=== PATIENT | female | born 1935 | race Caucasian/White ===

== ENCOUNTER 2023-11-09 11:11 | Observation (INO) ==
--- NOTE | 2023-11-03 10:20 | PAT Medication Instructions ---
Medication Instructions Date of Service November 03, 2023 Home Medications amlodipine 10 mg tablet 10 mg PO QAM calcium carbonate 600 mg-vitamin D3 20 mcg (800 unit) tablet (Caltrate with Vitamin D3) 1 tab PO BID denosumab 60 mg/mL subcutaneous syringe (Prolia) 60 mg subcut UD ezetimibe 10 mg tablet 10 mg PO QAM hydrochlorothiazide 12.5 mg tablet 12.5 mg PO QAM levothyroxine 100 mcg tablet (Synthroid) 100 mcg PO QAM lisinopril 40 mg tablet 40 mg PO QAM metoprolol succinate 25 mg tablet,extended release 24 hr 12.5 mg PO PM Centrum Silver 1 tab PO QAM omega 9-sfb-wue-fish oil 300 mg-1,000 mg capsule (Fish Oil) 1 cap PO QAM cholecalciferol (vitamin D3) 25 mcg (1,000 unit) chewable tablet (Vitamin D3) 25 mcg PO QAM ibuprofen 200 mg tablet (Advil) 200 mg PO Q6H PRN Pain latanoprost 0.005 % eye drops 1 drp ophthalmic (eye) PM vitamin A-vitamin C-vit E-min tablet 1 tab PO DAILY Continue as directed denosumab 60 mg/mL subcutaneous syringe (Prolia) 60 mg subcut UD ASK your surgeon for instructions ibuprofen 200 mg tablet (Advil) 200 mg PO Q6H PRN Pain ASK your prescriber and surgeon ibuprofen 200 mg tablet (Advil) 200 mg PO Q6H PRN Pain STOP taking 2 weeks before surgery (or as soon as possible if surgery is within 2 weeks) omega 7-lpt-zcc-fish oil 300 mg-1,000 mg capsule (Fish Oil) 1 cap PO QAM vitamin A-vitamin C-vit E-min tablet 1 tab PO DAILY DO NOT take the morning of surgery calcium carbonate 600 mg-vitamin D3 20 mcg (800 unit) tablet (Caltrate with Vitamin D3) 1 tab PO BID hydrochlorothiazide 12.5 mg tablet 12.5 mg PO QAM lisinopril 40 mg tablet 40 mg PO QAM Centrum Silver 1 tab PO QAM cholecalciferol (vitamin D3) 25 mcg (1,000 unit) chewable tablet (Vitamin D3) 25 mcg PO QAM Take morning of surgery With a small sip of water, OTHERWISE NOTHING TO EAT OR DRINK AFTER MIDNIGHT: amlodipine 10 mg tablet 10 mg PO QAM ezetimibe 10 mg tablet 10 mg PO QAM levothyroxine 100 mcg tablet (Synthroid) 100 mcg PO QAM Take evening before surgery calcium carbonate 600 mg-vitamin D3 20 mcg (800 unit) tablet (Caltrate with Vitamin D3) 1 tab PO BID metoprolol succinate 25 mg tablet,extended release 24 hr 12.5 mg PO PM latanoprost 0.005 % eye drops 1 drp ophthalmic (eye) PM Other Notes If you have any questions please call us at [phone] or [phone] or [phone] or [phone]
--- NOTE | 2023-11-03 14:20 | Anesthesiology Consultation ---
Date of Service November 03, 2023 Assessment & Plan (1) Encounter for pre-operative examination: Chart Review Chart Review: Pending: Refer to Additional Notes / Consult section (pending review of previous ECHO ) and Patient seen in Pre Admission Testing - ECHO from 2019 received- discussed with Dr. Samayoa- due to age and last ECHO being 2019- recommends updated ECHO prior to surgery/SAB. Please send optimization note to PCP to schedule ECHO at earliest convenience to [phone] - Awaiting review of ECHO prior to fluid orders being done - Patient is NOT an OPJ candidate Per PAT appt on 11/03/23, no recent illness/disease exposures, illness related symptoms, or recent illness/disease positive tests. Will leave to surgeon's discretion if preop Covid testing needed Teaching & Discussion Pre-Anesthesia Teaching/Discussion Notes: Instructed NPO after midnight before surgery,except medications with 15 cc of water. Medication instructions provided according to the PAT guidelines. History Surgery Operation Date: 11/09/23 10:40 Proposed Procedures p Left Total Hip Arthroplasty - Wally Moon MD Height/Weight Height: 5 ft 4 in Weight: 77.8 kg Allergies Allergy/AdvReac Type Severity Reaction Status Date / Time No Known Allergies Allergy Verified 11/03/23 09:03 Medications Home Medications Medication Instructions Recorded Confirmed Last Taken amlodipine 10 mg tablet 10 mg PO QAM 11/02/23 11/03/23 Unknown calcium carbonate 600 mg-vitamin 1 tab PO BID 11/02/23 11/03/23 Unknown D3 20 mcg (800 unit) tablet (Caltrate with Vitamin D3) denosumab 60 mg/mL subcutaneous 60 mg subcut UD 11/02/23 11/03/23 Unknown syringe (Prolia) ezetimibe 10 mg tablet 10 mg PO QAM 11/02/23 11/03/23 Unknown hydrochlorothiazide 12.5 mg tablet 12.5 mg PO QAM 11/02/23 11/03/23 Unknown levothyroxine 100 mcg tablet 100 mcg PO QAM 11/02/23 11/03/23 Unknown (Synthroid) lisinopril 40 mg tablet 40 mg PO QAM 11/02/23 11/03/23 Unknown metoprolol succinate 25 mg 12.5 mg PO PM 11/02/23 11/03/23 Unknown tablet,extended release 24 hr gvxpbtlq-bui-njtmd acid 0.4 1 tab PO QAM 11/02/23 11/03/23 Unknown mg-lycopene 300 mcg-lutein 250 mcg tablet (Centrum Silver) omega 3-kiz-sgc-fish oil 300 1 cap PO QAM 11/02/23 11/03/23 Unknown mg-1,000 mg capsule (Fish Oil) cholecalciferol (vitamin D3) 25 25 mcg PO QAM 11/03/23 11/03/23 Unknown mcg (1,000 unit) chewable tablet (Vitamin D3) ibuprofen 200 mg tablet (Advil) 200 mg PO Q6H PRN Pain 11/03/23 11/03/23 Unknown latanoprost 0.005 % eye drops 1 drp ophthalmic (eye) PM 11/03/23 11/03/23 Unknown vitamin A-vitamin C-vit E-min 1 tab PO DAILY 11/03/23 11/03/23 Unknown tablet Past Medical History Medical History (Updated 11/06/23 @ 11:37 by Kavitha Gasca PA-C) Arthritis of left hip Cardiac murmur Intermittent/chronic Believes last ECHO was 2019 Glaucoma Follows with eye doctor routinely History of COVID- fall 2022- no current symptoms Hyperlipidemia Hypertension Hypothyroidism Impaired fasting glucose Hgb A1C 6.0 on 11/03/23 Exercise / Class Metabolic Activity III < 4 Walking/Shop/Light housework (no chest pain or SOB with flat surface ambulation- uses cane/walker PRN ) Past Surgical History Surgical History History of cataract surgery bilat History of colonoscopy History of femur fracture right with hardware History of hysterectomy History of tooth extraction Past Anesthesia History No Hx of Anesthesia Complications and No Family Hx of Anesthesia Complications History of PONV No Hx of PONV and No Hx of Motion Sickness Social History Smoking Status: Former smoker Do You Dip or Chew Tobacco: No Smoking End Date: 60 yrs ago Hx Alcohol Use: Yes Alcohol type: wine alcohol intake frequency: holidays/special occasions only Hx Substance Use: No substance use type: does not use Review of Systems Patient denies chest pain, shortness of breath, dyspnea on exertion, reflux, cough, wheezing, palpitations. No hx of seizures, stroke, NM, apnea/snoring. No hx of blood clots or blood transfusions Physical Exam Vital Signs VITALS BP 111/60 P 71 TEMP 97.7 SP02 95% RESP 16 Constitutional no acute distress ENMT Mouth: no TMJ clicking Thyromental Distance: > or= 3.5 Finger Breadths (3.5) Mallampati Class: I Full dentures on top and bottom Neck + limited neck extension (mild) Respiratory normal respiratory effort; no respiratory distress Auscultation: lungs clear to auscultation bilaterally; no wheezes Cardiovascular Rate/Rhythm: regular rate and regular rhythm Heart Sounds: + murmur (II/ murmur ) Vessels: no carotid bruit Musculoskeletal Spine: no pain with cervical ROM Extremities: extremities normal to inspection Psychiatric Orientation: alert Lab Results Anesthesia Preop Results Results Anesthesia Widget: WBC 8.20 K/ul (4.8-10.8) 11/03/23 Hgb 12.7 g/dl (12.0-16.0) 11/03/23 Hct 37.6 % (37.0-47.0) 11/03/23 Plt 343 K/uL (130-400) 11/03/23 Na 136 mmol/L (136-145) 11/03/23 K 4.4 mmol/L (3.5-5.1) 11/03/23 Cl 101 mmol/L (98-107) 11/03/23 CO2 30 mmol/L (21-32) 11/03/23 BUN 24 mg/dl (6-23) H 11/03/23 Creat 0.86 mg/dl (0.6-1.2) 11/03/23 Glucose Level 130 mg/dl (70-99(Fasting)) H 11/03/23 PT 11.2 Seconds (9.0-12.0) 11/03/23 PTT 25 Seconds (21-31) 11/03/23 INR 1.0 (0.9-1.1) 11/03/23 HA1c 6.0 % (4.5-5.6) H 11/03/23 Blood Type A Positive 11/03/23 Antibody Screen NEGATIVE 11/03/23 Testing Electrocardiogram Date: 11/03/23 SR with 1st degree AVB at 68bpm RBBB Chest X-Ray Date: 11/03/23 FINDINGS: PA and lateral chest radiographs are obtained. No prior studies are available for comparison at the time of dictation. There is a moderate to large hiatal hernia. The heart is enlarged noting atherosclerotic calcification of the thoracic aorta. The pulmonary vasculature is noncongested. Nonspecific interstitial thickening is likely chronic. There is bibasilar scarring/atelectasis. The lungs and pleural spaces are otherwise clear. There is no pneumothorax. The skeletal structures are osteopenic. The bony thorax appears intact. Degenerative change is noted in the shoulders and spine. IMPRESSION: 1. Cardiomegaly with no active disease in the chest. 2. Moderate to large hiatal hernia. Echocardiogram Date: 05/20/20 EF: 65% LV Function: normal RWMA: + none Other Findings: no LVH LA mildly dilated RV is normal in size and function Mild MR. 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 Patient did not reach target heart rate but exercise tolerance was reduced. 6.2 METS achieved. MPHR 93%. No ischemic EKG changes, arrhythmias or ectopy at the level of exercise achieved. There were rare isolated PVCs in recovery phase.
[~2023-11-09 11:11] MED LIST: BUPIVACAINE 0.5 % 5 MG/1 ML PF 10ML VIAL ONE
[2023-11-09] MEDS: LR 500ML BOLUS, THEN 15ML/HR IV SCH (11:37)
[2023-11-09] MEDS: LR 60ML/HR IV SCH (11:38)
[2023-11-09] MEDS ORDERED: MIDAZOLAM HCL 1 MG/ML 2ML VIAL ONE (11:51)
[2023-11-09] MEDS ORDERED: PROPOFOL IV EMULSION 10 MG/ML 20 ML VIAL IV ONE (11:51)
--- NOTE | 2023-11-09 12:46 | History & Physical Bridge Note ---
Date of Service November 09, 2023 History & Physical Bridge Note I have examined the patient, reviewed the History & Physical and in the interval since the performance of the History & Physical I have noted the following changes of clinical significance: no changes noted
--- NOTE | 2023-11-09 13:00 | Magnetic Resonance Report ---
MRI OF THE LEFT FEMUR WITHOUT CONTRAST CLINICAL HISTORY: Left leg pain. Evaluate for atypical femoral fracture. COMPARISON STUDY: Left hip radiographs November 02, 2023. TECHNIQUE: Utilizing a 1.5 Merry magnet and dedicated coil, multiplanar, multiecho imaging of the lef t femur was performed without intravenous contrast. FINDINGS: This exam is mildly compromised due to motion artifact. However, there is no marrow edema w ithin the left femoral diaphysis at site of cortical thickening on radiographs of November 02, 2023 t o suggest an atypical femoral fracture. Severe left hip joint space narrowing is noted with associate d is no marrow edema within the left femoral head and neck. This is likely related to osteoarthritis although suboptimally visualized on this examination. No left thigh fluid collection is present. A ma rker was placed on the skin at site of maximal pain, overlying the anterior left thigh. No correspond ing abnormality is present. There is a small left hip joint effusion, likely related to osteoarthriti s. IMPRESSION: 1. No marrow edema within the left femoral diaphysis at site of cortical thickening on radiographs of November 02, 2023 to suggest atypical femoral fracture. 2. Severe left hip osteoarthritis with associated marrow edema within the left femoral head and neck, suboptimally visualized on this exam. ACT 112: Negative or not required by law. Electronically signed by: Yair Sheth M.D. 11/09/2023 12:59 PM
[2023-11-09] MEDS ORDERED: ePHEDrine sulfate 50 MG/ML AMP IV PRN (13:07)
[2023-11-09] MEDS ORDERED: ONDANSETRON INJ 2 MG/ML 2 ML VIAL IV PRN ×2 (13:07→16:23)
[2023-11-09] MEDS ORDERED: ATROPINE SULFATE 0.1 MG/ML 10ML SYR IV PRN (13:07)
[2023-11-09] MEDS: FAMOTIDINE 20 MG TAB PO SCH (13:10)
[2023-11-09] MEDS: dexAMETHasone 4 MG TAB PO SCH (13:10)
[2023-11-09] MEDS: ACETAMINOPHEN 500 MG TAB PO SCH ×2 (13:10→21:02)
[2023-11-09] MEDS: CeleBREX 200 MG CAP PO SCH (13:11)
[2023-11-09] MEDS: METOCLOPRAMIDE HCL 10 MG TABLET PO SCH (13:11)
[2023-11-09] MEDS: TRANEXAMIC ACID 1,000 MG **IV Pre-op IV SCH (13:27)
[2023-11-09] MEDS: ceFAZolin 2000MG 2,000 MG/15 ML SYR IV SCH (13:40)
[2023-11-09] MEDS: BUPIVACAINE/EPINEPHRINE 0.5% MPF 1:200,000 30 ML VIAL ONE (14:17)
--- NOTE | 2023-11-09 15:29 | Operative Report ---
PG Post Operative Report Pre & Post Diagnosis Operation Date: 11/09/23 12:30 Pre-Op Diagnosis: Left Hip Advanced Degenerative Joint Disease Post-Op Diagnosis: Left Hip Advanced Degenerative Joint Disease I identified the patient and participated in the time-out.: Yes Procedure Operation Date: 11/09/23 12:30 Actual Procedures p Left Total Hip Arthroplasty, Cemented(Left) - Wally Moon MD Surgeon Wally Moon MD Care Management Assistant Johnathon Corona PA-C Estimated Blood Loss 100 Findings Consistent with Post-Op Diagnosis Operative findings were advanced left hip DJD. 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 She had a protrusion of the acetabulum and the femoral head medially. Significant osteophytes around the femoral head and acetabulum. Specimens Left femoral head sent for pathology. Anesthesia Type Spinal MAC Complications none Disposition Accompanied Patient To Recovery: No Indications Patient is an 88-year-old female is had a long history of left hip pain discomfort is gotten markedly worse over the past several months. She has had to resort to using a cane to get around. X-rays showed advanced hip arthritis. Patient also has a history of atypical femur fracture and osteoporosis. She was having there is severe pain so we did get an MRI of her femur to make sure she did not have a stress fracture. There was no signs of a stress fracture. The patient indicated for surgical treatment for hip arthritis. Description of Procedure Operative implants consist of: 1 Biomet G7 size 52 mm acetabular shell. 2. 6.5 cancellous acetabular screws 1 of 35 mm length and 1 of 25 mm length. 3. [place] hole spring encaser. 4. Highly cross-linked polyethylene liner with a 52 mm outer diameter and 36 mm diameter. 5. DePuy Homer size 2 standard femoral stem. 6. +5/36 mm ceramic articular ball. The patient was taken the operating, identified, placed on the operating table in supine position but all contractors were properly padded. IV antibiotics provided by anesthesia team. Spinal anesthetic and been implemented holding area. [place] catheter was placed in sterile fashion. The patient was then placed in the right lateral decubitus position. Next a roll was placed. Stulberg hip positioner was used for positioning. The left hip and leg were then prepped and draped in usual sterile fashion. A posterolateral approach the left hip was then performed to a curvilinear incision centered over the greater trochanter. Sharp dissection carried through subcutaneous tissue down to the gluteal fascia. The gluteal fascia was incised longitudinally in line with skin incision. The underlying greater bursa was excised. The piriformis and external rotators along with the posterior hip joint capsule was then released from the hip as a single layer. Great care was taken throughout the procedure to protect the sciatic nerve at all times. I then did did a in situ cut of the femoral neck due to the protrusio hip and inability dislocated without the risk of fracture. I then internally rotated the leg. Then made a femoral neck osteotomy cut about a centimeter above the lesser trochanter. The remaining femoral neck was removed. The femur was retracted anteriorly. The femoral head was removed. The acetabulum was exposed. Attention then turned toward preparation. Preparation of the acetabular was then performed beginning with reaming with a 43 and progressing up to a 51. I did very carefully reamed this due to the protrusio appearance and architecture. I then reamed a bit with a 52 reamer and placed a 52 mm acetabular cup in about 40 degrees lateral opening and 20 degrees of anteversion. It was fixed with two 6.5 cancellous screws. A trial liner was placed. Attention drawn the femur. The proximal femur was entered with a cookie cutter followed by canal finder and lateralizing reamer. I then broached beginning the size of 1 and progressing up to a 2. Got pretty good fitted to. I trialed the hip and the +5 articular ball provide full stability, appropriate leg lengths and appropriate soft tissue tension. The hip was fully stable in full extension and external rotation and flexion to 90 degrees internal rotation over [address] I elected to place these implants. All trial implants were removed. [place] hole spring encaser was placed. Highly cross- linked polyethylene liner was placed. A cement restrictor was placed on the canal. I placed this an extra distance down the canal as I was concerned about her developing a stress fracture distal end of the stem. I then mixed a double batch [place] G cement. This was injected in the canal. A size 2 standard Homer femoral stem was then placed. Once the cement hardened a +5/36 mm ceramic articular ball was placed. Hip was located and once again found to be stable. Attention drawn toward closing. Wound was irrigated coconuts pulsatile lavage solution. I did inject locally with 60 cc of half percent Marcaine with epinephrine. The posterior capsule and external rotators then repaired through drills in the posterior trochanter with #2 Tycron suture. The IT band gluteal fascia was then closed with #1 PDS suture in running fashion for subcutaneous tissues then closed in 2 layers with a deep layer #2 Vicryl suture in the subcutaneous tissues with 2 Dexon suture in a buried interrupted fashion. The skin was closed with skin milad. The leg was then cleaned and dried. A Prevena VAC dressing was applied due to the very thick soft tissue envelope. The patient was then transferred to the recovery room in stable condition. Patient tolerated procedure well there are no complications. Johnathon Corona, my physician assistant director of public works, was present for the entire procedure. His assistance was essential and required for appropriate patient positioning, prepping and draping, surgical exposure, performing the technical details of the operation, placement the implants, closure of the wound, and placement of the sterile bandage. I attest to the content of the Intraoperative Record and any orders documented therein. Any exceptions are noted below.
--- NOTE | 2023-11-09 15:58 | Anesthesiology Progress Note ---
Date of Service November 09, 2023 Anesthesia Post Procedure Vital Signs Vital Signs: Temp Pulse Pulse Resp BP Pulse Ox O2 Del Method 11/09/23 15:55 74 20 141/100 H 96 Room Air 11/09/23 15:45 73 18 135/82 97 Room Air 11/09/23 15:35 71 20 136/66 96 Room Air 11/09/23 15:25 36.5 C 70 21 124/69 98 Oxymask 11/09/23 11:38 37 C 74 20 155/66 H 97 Room Air O2 Flow Rate 11/09/23 15:55 11/09/23 15:45 11/09/23 15:35 11/09/23 15:25 5 11/09/23 11:38 Transfer of Care Handoff Completed per policy Notes Mental Status: alert / awake / arousable Patient Amnestic to Procedure: Yes Nausea / Vomiting: adequately controlled Pain: adequately controlled Airway Patency, RR, SpO2: stable & adequate BP & HR: stable & adequate Hydration State: stable & adequate Neuraxial Anesthesia: was administered and sensory block is resolving Anesthetic Complications: no major complications apparent and Pt Satisfied with anesthetic care
[2023-11-09] MEDS ORDERED: bisacodyL 10 MG SUPP PR PRN (16:23)
[2023-11-09] MEDS ORDERED: ALUMINUM/MAGNESIUM SUSP 30 ML UDC PO PRN (16:23)
[2023-11-09] MEDS ORDERED: METOCLOPRAMIDE HCL INJ 5 MG/ML 2 ML VIAL IV PRN (16:23)
[2023-11-09] MEDS ORDERED: MAGNESIUM HYDROXIDE SUSP 30 ML UDC PO PRN (16:23)
[2023-11-09] MEDS ORDERED: NALOXONE HCL 0.4 MG/1 ML VIAL/CARP IV PRN (16:23)
[2023-11-09] MEDS: SODIUM CHLORIDE 0.9% 1,000 ML IV SCH (17:00)
[2023-11-09] MEDS: KETOROLAC TROMETHAMINE 15 MG/ML VIAL IV SCH (17:00)
--- NOTE | 2023-11-09 17:00 | XRay Report ---
AP PELVIS, CROSSTABLE LATERAL LEFT HIP History: Left total hip arthroplasty.. Postop. FINDINGS: The patient is status post a left total hip arthroplasty. The hardware is intact. No fractu re or dislocation. Skin milad are in place. Old postoperative changes within the right hip. IMPRESSION: Left total hip arthroplasty. No evidence for hardware complication. ACT 112: Negative or not required by law. Electronically signed by: Rudy Hopson M.D. 11/09/2023 4:58 PM
[2023-11-09] MEDS: ASCORBIC ACID 500 MG TAB PO SCH (17:32)
[2023-11-09] MEDS: traMADol HCL 50 MG TABLET PO PRN (17:32)
[2023-11-09] MEDS ORDERED: SENNA 8.6 MG TAB PO SCH (21:00)
[2023-11-09] MEDS: METOPROLOL SUCC 25MG EXT REL TAB PO SCH (21:02)
[2023-11-09] MEDS: SENNA 8.6 MG TAB PO SCH (21:02)
[2023-11-09] MEDS: ASPIRIN 81 MG ECTAB PO SCH (21:04)
[2023-11-09] MEDS: DOCUSATE SODIUM 100 MG CAP PO SCH (21:04)
[2023-11-09] MEDS: CALCIUM 600MG + VIT D 400 IU TAB PO SCH (21:04)
[2023-11-09] MEDS: TRANEXAMIC ACID / 0.7% NACL 1,000 MG/100 ML BAG IV SCH (21:06)
[2023-11-09] MEDS: LATANOPROST 0.005% OP SOLN 2.5 ML BTL OP SCH (21:06)
[2023-11-09] MEDS: ceFAZolin 1000MG 1,000 MG/7.5 ML SYR IV SCH (21:06)
[2023-11-09] MEDS ORDERED: ACETAMINOPHEN 500 MG TAB PO SCH (22:00)
[2023-11-09] MEDS: HYDROmorphone INJ 0.5 MG/0.5 ML SYR IV PRN (22:12)
[2023-11-10] MEDS: LEVOTHYROXINE SODIUM 100 MCG TABLET PO SCH (05:23)
[2023-11-10 06:27] LABS: Basophils # (auto) 0.01 K/uL (0.00-0.20); Basophils % (auto) 0.1 %; Hematocrit (blood only) 35.8 % (37.0-47.0); Hemoglobin 12.2 g/dl (12.0-16.0); Immature Granulocytes # (auto) 0.06 K/uL (0.01-0.20); Immature Granulocytes % (auto) 0.5 %; Lymphocytes # (auto) 0.77 K/uL (1.20-3.40); Lymphocytes % (auto) 6.9 %; Mean Corpuscular Hgb Conc 34.1 g/dL (32.0-36.0); Mean Corpuscular Volume 90.9 fL (80.0-100.0); Monocytes # (auto) 0.92 K/uL (0.11-0.59); Monocytes % (auto) 8.2 %; Neutrophils # (auto) 9.42 K/uL (1.40-6.50); Neutrophils % (auto) 84.3 %; Platelet Count 310 K/uL (130-400); RDW Coefficient of Variation 12.5 % (11.5-14.5); RDW Standard Deviation 41.3 fL (36.4-46.3); Red Blood Count 3.94 M/uL (4.20-5.40); White Blood Count 11.18 K/ul (4.8-10.8)
[2023-11-10 06:32] LABS: BUN Creatinine Ratio 35.6 (10-20); Est GFR (African American) 96.2 ml/min; Potassium 4.3 mmol/L (3.5-5.1)
[2023-11-10] MEDS: dexAMETHasone 10 MG in SYRINGE 0 ML IV SCH (07:04)
--- NOTE | 2023-11-10 07:05 | Surgery Progress Note ---
Date of Service November 10, 2023 Assessment & Plan (1) Status post left hip replacement: Plan: 88-year-old female postop day 1 from a left hybrid total hip replacement. She is doing pretty well. Pains controlled. Hips located. She is neurologically intact. She is hoping to go home. Plan: 1. DVT prophylaxis including thigh-high teds, SCDs, aspirin twice a day. 2. PT/OT. Weight-bear as tolerated. Left total hip precautions. 3. Pain control doing okay with current pain regimen. 4. Disposition plan to discharge home with home health if she does okay in therapy today. Admission and Anticipated Discharge Date Admission Date: November 09, 2023 Subjective 88-year-old female postop day 1 from hybrid total hip replacement. That she is doing quite well this morning. The pain seems to be improved. No chest pain or shortness of breath. Not feeling dizzy or lightheaded. Physical Exam Physical Exam: Physical examination is a pleasant elderly female patient lying bed. She awake alert and oriented. Examination of left hip reveals dressing clean dry and intact. Leg lengths are equal. Thigh is soft and supple. She is neurologically intact. Respiratory: normal respiratory effort, lungs clear to auscultation Cardiovascular: RRR, no murmur, no edema Gastrointestinal (Abdomen): normal bowel sounds, soft, nontender, no hepatosplenomegaly Results & Data Vital Signs (Past 12 Hours) Vital Signs Temp Pulse Resp BP BP Pulse Ox O2 Del Method 11/10/23 07:02 36.4 C L 75 17 157/81 H 98 Room Air 11/10/23 04:25 36.4 C L 68 16 129/77 97 Room Air 11/10/23 00:12 36.4 C L 68 16 114/65 95 Room Air 11/09/23 20:00 Room Air 11/09/23 19:49 36.3 C L 76 16 122/74 94 Room Air Laboratory Results Hemoglobin 12.2. Hematocrit 35.8. Electrolytes are stable. PG Care Time/CCT Total # of Minutes Spent Total Time Spent with Patient: Total time spent is greater than 50% in coordination of care (as documented) at patient's floor/unit and/or counseling patient: Coding Level of Care Code 87626 Post Operative Follow-Up Diagnoses Status post left hip replacement Z96.642
[2023-11-10] MEDS: MULTIVITAMIN TAB PO SCH (07:06)
[2023-11-10] MEDS: hydroCHLOROthiazide 25 MG TAB PO SCH (07:07)
[2023-11-10] MEDS: CHOLECALCIFEROL 25 MCG (1000 UNITS) TAB PO SCH (07:07)
[2023-11-10] MEDS: OMEGA-3 (PURIFIED FISH OIL) 1 GM CAP PO SCH (07:07)
[2023-11-10] MEDS: CEROVITE ADV FORMULA TAB PO SCH (07:08)
[2023-11-10] MEDS: lisinopril 40 MG TAB PO SCH (07:08)
[2023-11-10] MEDS: amLODIPine BESYLATE 5 MG TAB PO SCH (07:08)
[2023-11-10] MEDS: EZETIMIBE 10 MG TAB PO SCH (07:08)
[2023-11-10] MEDS ORDERED: NON-FORMULARY MEDICATION (Vitamin A-Vitamin C-Vit E-Min Tablet) PO SCH (09:00)
--- NOTE | 2023-11-14 14:53 | Discharge Summary ---
Date of Service November 14, 2023 Discharge Data Procedures Performed Operation Date: 11/09/23 12:30 Actual Procedures p Left Total Hip Arthroplasty, Cemented(Left) - Wally Moon MD Hospital Course (1) Status post left hip replacement: This is a 88 year old patient admitted on 11/09/23 and underwent total hip arthroplasty. She tolerated the procedure well and there were no complications. Transferred to the PACU post op and later to the orthopedic floor for further care. She was given ancef for antibiotic prophylaxis. She was also given JAYCEE stockings, SCDs, and aspirin for DVT prophylaxis. Hemoglobin, hematocrit, and vital signs were monitored during her hospital stay and remained stable. Did not require any blood transfusions. There were no complications during her hospital stay. By post op day #1 the patient was tolerating a regular diet, pain was reasonably controlled with oral pain medicine, and she was participating in physical therapy. On post op day #1 the patient was discharged home and set up with home health care. She was given printed discharge instructions including prescriptions for extra strength tylenol, aspirin, ketorolac, zofran, senokot, and tramadol. Continue hip precautions. Continue physical therapy, weight bearing as tolerated. Continue JAYCEE stockings. Follow up approximately 2 weeks post op or sooner if there are problems or concerns. Coding Level of Care Code None Diagnoses Status post left hip replacement Z96.642
== END 2023-11-10 13:11 | disposition home health service (06) ==
LOC: ASU 11:11 → INTOOBSV 15:28 → 3E 15:28
DX: Z79.899 Other long term (current) drug therapy; E03.9 Hypothyroidism, unspecified; Z79.890 Hormone replacement therapy; Z81.2 Family history of tobacco abuse and dependence; I34.0 Nonrheumatic mitral (valve) insufficiency; E78.5 Hyperlipidemia, unspecified; Z79.82 Long term (current) use of aspirin; H40.9 Unspecified glaucoma; I10 Essential (primary) hypertension; M16.12 Unilateral primary osteoarthritis, left hip